=== PATIENT | male | born 1970 | race Caucasian/White ===

== ENCOUNTER 2019-07-20 03:59 | Inpatient (IN) ==
--- NOTE | 2019-07-20 04:21 | ERNOTE ---
Abdominal HPI - General Chief Complaint: Abdominal Pain Time Seen by Provider: 07/20/19 04:09 Source: patient Exam Limitations: no limitations - Immun/Allergies/Home Medications Immunizatons: IMMUNIZATION HX Immunizations Up to Date Yes Allergies/Adverse Reactions: Allergies No Known Allergies Allergy (Verified 07/20/19 04:05) Home Medications: HOME MEDICATIONS Escitalopram Oxalate [Lexapro] 10 mg PO DAILY 02/10/18 [Last Taken Unknown] Carvedilol [Coreg] 6.25 mg PO BID 07/20/19 [Last Taken Unknown] amLODIPine BESYLATE [Norvasc] 5 mg PO DAILY 07/20/19 [Last Taken Unknown] - History of Present Illness Narrative: Patient has reflux symptoms for the past couple of days. A couple of nights he has woken up with acid brash. A couple of months ago he had some similar symptoms aspirated and had cardiopulmonary arrest and was resuscitated in this ED. He was sent to [facility] in [place] for aspiration pneumonia. He did have a cardiac stress test at that same time and states it came out very good. This morning he had similar acid brash symptoms and has a lot of upper abdominal pressure which is concerned of the same thing happening as he had previously done. Timing: getting worse Quality: moderate, fullness Activities at Onset: sleep Modifying Factors - (Improves): Present: sitting up Modifying Factors - (Worsens): Present: lying down Associated Symptoms: Present: nausea Review of Systems - Review of Systems Constitutional: Absent: recent illness ENT: Absent: nose congestion, nasal drainage Respiratory: Present: cough. Absent: shortness of breath Cardiology: Absent: chest pain Gastrointestinal/Abdominal: Present: nausea, abdominal pain Genitourinary: Absent: frequency, pain, dysuria Musculoskeletal: Absent: back pain Neurological: Absent: dizziness/light-headedness Endocrine: Present: excessive sweating Psych: Present: anxiety, depressed Medical History (Updated 07/20/19 @ 08:05 by Stephen Miguel DO) History of successful cardiopulmonary resuscitation Hypertension Hypovitaminosis D Onset Date: Unknown Anxiety Onset Date: Unknown Depression Onset Date: Unknown Hemorrhoids Onset Date: Unknown Surgical History: Surgical History (Updated 06/08/18 @ 14:44 by Brandy Santos RN) History of hemorrhoidectomy Onset Date: ~02/24/18 Gianna-x3 History of inguinal hernia repair Onset Date: ~1988 right History of right knee surgery Onset Date: Unknown meniscus tear when in high school History of tonsillectomy and adenoidectomy Onset Date: Unknown Family History: Family History (Updated 06/08/18 @ 14:49 by Brandy Santos RN) Father Ulcer Mother , age 45-DM type 1, kidney disease Diabetes Kidney disease amputation leg Brother Alive and well 2 half brothers-1 healthy, 1 w/stomach issues Sister Alive and well 1 half sister Social History: (Last Reviewed 07/20/19 @ 04:20 by Stephen Miguel DO) Social History: Marital status: Single household members: significant other current occupational status: employed 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 Service: No Tobacco: Smokeless tobacco user: chewing tobacco Alcohol: alcohol intake: current alcohol intake frequency: holiday/special occasion Substance Use: substance use type: does not use Dietary Habits: caffeine: Yes Personal Safety: victim of physical abuse: No victim of emotional abuse: No Physical Exam - Physical Exam General Appearance: Present: wd/wn, alert, no apparent distress, anxious Head Exam: Present: normal inspection, no evidence of injury Neck: Present: normal inspection, nontender, supple Respiratory: Present: no respiratory distress, normal breath sounds, no accessory muscle use, chest nontender, lungs clear Cardiovascular/Chest: Present: regular rate, rhythm, no murmur Gastrointestinal/Abdominal: Present: normal bowel sounds, tenderness - upper abdomen L>R . Absent: distended, guarding, rebound Back Exam: Present: normal inspection, normal range of motion, no CVA tenderness Extremity Exam: Present: normal inspection, normal range of motion, no edema Neurological Exam: Present: alert, oriented, normal mood/affect, no motor/sensory deficits Skin Exam: Present: normal color, warm/dry Progress - Results and Orders Patient's Lab Results:: I have reviewed the patient's lab results. Results and Orders: Laboratory Tests 07/20/19 07/20/19 04:15 04:15 WBC 12.6 H Hgb 17.5 Hct 49.7 Plt Count 253 Neutrophils % 78.2 H Sodium 137 Potassium 3.9 Chloride 101 Anion Gap 18.6 H BUN 19 Creatinine 1.11 Random Glucose 149 H Calcium 9.3 Total Bilirubin 0.8 AST 16 ALT 24 Alkaline Phosphatase 111 Amylase 36 Lipase 101 - Vital Signs Patient's Vital Signs:: I have reviewed the patient's vital signs. Vital Signs: Vital Signs 07/20/19 04:02 Temperature 36.8 C Pulse Rate 90 Respiratory Rate 16 Blood Pressure 158/118 H - EKG EKG #1 EKG: NSR, RBBB, no ST T wave changes, unchanged from - 05/18/2019 EKG read: Interp. by me - X-Ray X-Ray #1 X-Ray: abdomen Interpretation: Interp. by me X-ray Comments: Multiple gas filled loops of bowel minimal air-fluid levels, no obvious obstruction. X-Ray #2 X-Ray: chest Interpretation: Interp. by me X-ray Comments: No cardiopulmonary abnormalities. - CT/Ultrasound CT/Ultrasound Narrative: CT abdomen pelvis with IV and oral contrast: IMPRESSION: SMALL BOWEL OBSTRUCTION WITH A TRANSITION POINT IN THE DISTAL ILEUM. Electronically signed by Jose Raul Jimenez D.O.. - Progress/Reassessment Chief Complaint: Abdominal Pain Progress Note-Subjective: 07/20/19 07:[address] Ramírez and he will consult if medicine will admit. I spoke with Dr. Wong and he agrees with admit. Departure Clinical Impression: Small bowel obstruction - Departure Disposition: Still a patient Condition: Fair
[2019-07-20 04:23] LABS: Hematocrit 49.7 % (42.0-52.0); Hemoglobin 17.5 gm/dL (13.5-18.0); Mean Cell Volume 86.9 fl (78-100); Mean Corpuscular Hemoglobin 30.6 pg (27-31); Mean Corpuscular Hgb Conc 35.2 g/dl (32-36); Mean Platelet Volume 10.5 fl (8-11.3); Neutrophil # 9.9 K/mm3 (1.3-6.0); Neutrophil % 78.2 % (42-75.0); Platelet Count 253 K/mm3 (150-450); Red Blood Count 5.72 M/mm3 (4.7-6.0); Red Cell Distribution Width 12.7 % (11.5-14.0); White Blood Count 12.6 K/mm3 (4.0-10.5)
[2019-07-20 04:32] LABS: Anion Gap 18.6 mmol/L (6.8-13.8); BUN/Creatinine Ratio 17.1 (9.0-21.6); Bilirubin, Total 0.8 mg/dL (0.0-1.1); Calcium * 9.3 mg/dL (7.9-10.9); Carbon Dioxide 21.3 mmol/L (24-32.6); Potassium 3.9 mmol/L (3.4-4.6); Total Protein 8.5 gm/dL (6.2-8.2)
[2019-07-20] MEDS ORDERED: LIDOCAINE HCL 20 ML UDC PO ONE (04:39)
[2019-07-20] MEDS ORDERED: SUCRALFATE 1 G/10 ML UDC PO ONE (04:39)
[2019-07-20] MEDS ORDERED: MAG HYDROX/ALUMINUM HYD/SIMETH 30 ML UDC PO ONE (04:39)
[2019-07-20] MEDS ORDERED: DIATRIZOATE MEGLUMINE, SODIUM 30 ML BTL PO ONE (05:13)
[2019-07-20] MEDS ORDERED: hydrALAZINE HCL 20 MG/ML VIAL IV SCH (09:30)
[2019-07-20] MEDS ORDERED: hydrALAZINE HCL 20 MG/ML VIAL IV ONE (10:00)
--- NOTE | 2019-07-20 10:34 | CONS ---
[facility] - General Date of Service: 07/20/19 Source: patient, RN/MD, RN notes reviewed, old records Exam Limitations: no limitations - History of Present Illness Initial Comments: For about 48 hours he is been having symptoms of epigastric discomfort, diarrhea, and acid reflux. He was worried that this was similar to his vomiting/aspiration/arrest in May and came into be evaluated. He usually moves his bowels every other day or so. He has had a hemorrhoid operation in the past. For the last 48 hours he has been having watery diarrhea. There is no blood or mucus. No abby abdominal pain just fullness in the upper abdomen. He has had nighttime waterbrash. No fever chills. His only previous surgery was inguinal hernia repair many years ago. Timing/Duration: other - About 48 hours Modifying Factors - (Worsens): Reports: eating Modifying Factors - (Improves): Reports: immobilization Allergies/Adverse Reactions: Allergies No Known Allergies Allergy (Verified 07/20/19 04:05) Home Medications: Home Medications Medication Instructions Recorded Last Taken Escitalopram Oxalate [Lexapro] 10 mg PO DAILY 02/10/18 Unknown Carvedilol [Coreg] 6.25 mg PO BID 07/20/19 Unknown amLODIPine BESYLATE [Norvasc] 5 mg PO DAILY 07/20/19 Unknown Procedures Excision of Hemorrhoidal Plexus, Percutaneous Approach (02/24/18) Review of Systems - Review of Systems Generalized/Overall Review: Present: Malaise. Absent: Chills, Fever EENTM: Present: No Symptoms Reported Respiratory: Present: No Symptoms Reported Cardiac: Present: No Symptoms Reported Abdominal: Present: Other - Abdominal fullness in the epigastrium. Watery diarrhea. Acid reflux Genitourinary: Present: No Symptoms Reported Musculoskeletal: Present: No Symptoms Reported - /waterbrash Neurological: Present: No Symptoms Reported Skin: Present: No Symptoms Reported Endocrine: Present: No Symptoms Reported Physical Examination - Exam Vital Signs: Vital Signs - Last Taken Temp 36.7 C 07/20/19 10:25 Pulse 90 07/20/19 10:25 Resp 20 07/20/19 10:25 BP 182/118 H 07/20/19 10:25 Pulse Ox 97 07/20/19 10:25 O2 Oxygen Delivery Method Room Air Constitutional: Present: Alert, Oriented x3, Cooperative, Well nourished, No distress ENT Exam: Present: normal ENT inspection, other - Nasogastric tube Eye Exam: bilateral eye: normal inspection Neck: Present: full range of motion, normal inspection Respiratory: Present: no respiratory distress Cardiovascular/Chest: Present: regular rate, rhythm Abdomen: Present: Normal bowel sounds, soft, nontender /Rectal: Present: Exam deferred Extremity: Present: normal range of motion, normal inspection Skin Exam: Present: normal color, warm/dry Neurologic: Present: consulting senior practice director II-XII nml as tested, no motor/sensory deficits Appearance: Present: appropriate appearance, appropriate insight Eye contact: Present: cooperative, good eye contact, normal speech Thoughts: Present: normal thought pattern - Results and Findings: Lab/Microbiology results last 24 hrs: Abnormal/Pending Laboratory Last 24 HRS 07/20/19 07/20/19 04:15 04:15 WBC 12.6 H Neutrophils % 78.2 H Lymphocytes % 10.4 L Eosinophils % 3.9 H Neutrophils # 9.9 H Lymphocytes # 1.31 L Carbon Dioxide 21.3 L Anion Gap 18.6 H Random Glucose 149 H Total Protein 8.5 H - Assessments/Findings (1) Small bowel obstruction Diagnosis(s): He has been having diarrhea and there is gas in the colon so the possible obstruction is not complete. Would recommend continued nasogastric suction with IV fluids. He may have ice chips. Would check for H. pylori antigen and stool for pathogens. We will recheck abdominal x-ray later today. Problem: Acute
[2019-07-20] MEDS ORDERED: PHENOL 180 SPRAY BTL MM PRN (10:37)
[2019-07-20] MEDS: PANTOPRAZOLE SODIUM 40 MG in NORMAL SALINE 100 ML IV SCH (11:37)
[2019-07-20] MEDS: POTASSIUM CHLORIDE 20 MEQ in DEXTROSE 5%-0.5 NORMAL SALINE 990 ML IV SCH ×2 (11:37→20:19)
--- NOTE | 2019-07-20 16:07 | PN ---
Dictated Progress Note - Date and Time Seen: Date: 07/20/19 Time: 16:06 - Progress Note Narrative: Vital Signs - Last Taken Temp 36.5 C 07/20/19 15:00 Pulse 74 07/20/19 15:00 Resp 20 07/20/19 15:00 BP 152/105 H 07/20/19 15:00 Pulse Ox 97 07/20/19 15:00 Abnormal/Pending Laboratory Last 24 HRS 07/20/19 07/20/19 04:15 04:15 WBC 12.6 H Neutrophils % 78.2 H Lymphocytes % 10.4 L Eosinophils % 3.9 H Neutrophils # 9.9 H Lymphocytes # 1.31 L Carbon Dioxide 21.3 L Anion Gap 18.6 H Random Glucose 149 H Total Protein 8.5 H No appreciable NG output since insertion. He states he can feel "lots of activity and there". He has passed gas and "I feel like I could have a bowel movement". Will recheck abdominal x-ray.
--- NOTE | 2019-07-20 16:51 | HP ---
Chief Complaint - Chief Complaint Date of Service: 07/20/19 Time of Service: 16:51 Chief Complaint: abdominal pain History of Present Illness: 48-year-old male, history of hypertension and depression presented to the ER after 3 days of worsening abdominal pain and diarrhea. Patient denies fevers or chills, denies blood in his stool, denies change in diet. Patient states abdominal pain is mostly across the top of the abdomen and was initially guarding on exam. CT scan in the ER showed small bowel obstruction with the transition point distal ileum. Patient had an elevated white count 12.6 with a left shift of 78.2. Rest of the labs were benign. Dr. Mena general surgery was consulted from the ER he felt like conservative measures would be appropriate for him at this time. NG tube placed and sit to low intermittent barber ction. Patient was admitted to the floor. Patient denies surgical history of the abdomen. His blood pressure was elevated but the rest vital signs are stable. Medical History (Updated 07/20/19 @ 10:34 by Garth Ramírez MD) History of successful cardiopulmonary resuscitation Hypertension Hypovitaminosis D Onset Date: Unknown Anxiety Onset Date: Unknown Depression Onset Date: Unknown Hemorrhoids Onset Date: Unknown Surgical History: Surgical History (Updated 07/20/19 @ 10:34 by Garth Ramírez MD) History of hemorrhoidectomy Onset Date: ~02/24/18 Tommeraasen-x3 History of inguinal hernia repair Onset Date: ~1988 right History of right knee surgery Onset Date: Unknown meniscus tear when in high school History of tonsillectomy and adenoidectomy Onset Date: Unknown Family History: Family History (Updated 06/08/18 @ 14:49 by Brandy Santos RN) Father Ulcer Mother , age 45-DM type 1, kidney disease Diabetes Kidney disease amputation leg Brother Alive and well 2 half brothers-1 healthy, 1 w/stomach issues Sister Alive and well 1 half sister Social History: (Last Reviewed 07/20/19 @ 10:24 by Parvez Kennedy RN) Social History: Marital status: Single household members: significant other current occupational status: employed 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 Absent: Vomiting Genitourinary: Present: No Symptoms Reported - History Musculoskeletal: Present: No Symptoms Reported Neurological: Present: No Symptoms Reported Skin: Present: No Symptoms Reported Endocrine: Present: No Symptoms Reported Immunizations: IMMUNIZATION HX Immunizations Up to Date Yes Allergies/Adverse Reactions: Allergies Allergy/AdvReac Type Severity Reaction Status Date / Time No Known Allergies Allergy Verified 07/20/19 04:05 Home Medications: HOME MEDICATIONS Escitalopram Oxalate [Lexapro] 10 mg PO DAILY 02/10/18 [Last Taken Unknown] Carvedilol [Coreg] 6.25 mg PO BID 07/20/19 [Last Taken Unknown] amLODIPine BESYLATE [Norvasc] 5 mg PO DAILY 07/20/19 [Last Taken Unknown] Exam - Exam Vital Signs: Vital Signs - Last Taken Temp 36.5 C 07/20/19 15:00 Pulse 74 07/20/19 15:00 Resp 20 07/20/19 15:00 BP 152/105 H 07/20/19 15:00 Pulse Ox 97 07/20/19 15:00 Constitutional: Present: Alert, Oriented x3, Cooperative ENT Exam: Present: hearing grossly normal. Absent: nasal congestion Eye Exam: bilateral eye: normal inspection - Is Neck: Present: non-tender, supple - Is discharge is Back Exam: Present: no CVA tenderness, no vertebral tenderness Respiratory: Present: lungs clear, normal breath sounds, no respiratory distress Cardiovascular/Chest: Present: regular rate, rhythm, no edema. Absent: systolic murmur Abdomen: Present: soft, tender - LUQ, RUQ, hypoactive - Return. Absent: rigidity, rebound tenderness /Rectal: Present: Exam deferred Skin Exam: Present: normal color, warm/dry Appearance: Present: appropriate appearance, appropriate insight Eye contact: Present: cooperative, good eye contact Thoughts: Present: normal thought pattern, normal mood /affect Diagnostic Studies: Abnormal Lab Results 07/20/19 07/20/19 Range/Units 04:15 04:15 WBC 12.6 H (4.0-10.5) K/mm3 Neutrophils % 78.2 H (42-75.0) % Lymphocytes % 10.4 L (20-51) % Eosinophils % 3.9 H (0.0-3.0) % Neutrophils # 9.9 H (1.3-6.0) K/mm3 Lymphocytes # 1.31 L (1.5-3.5) k/mm3 Carbon Dioxide 21.3 L (24-32.6) mmol/L Anion Gap 18.6 H (6.8-13.8) mmol/L Random Glucose 149 H (70-110) mg/dL Total Protein 8.5 H (6.2-8.2) gm/dL Laboratory Results WBC 12.6 K/mm3 (4.0-10.5) H 07/20/19 04:15 RBC 5.72 M/mm3 (4.7-6.0) 07/20/19 04:15 Hgb 17.5 gm/dL (13.5-18.0) 07/20/19 04:15 Hct 49.7 % (42.0-52.0) 07/20/19 04:15 MCV 86.9 fl (78-100) 07/20/19 04:15 MCH 30.6 pg (27-31) 07/20/19 04:15 MCHC 35.2 g/dl (32-36) 07/20/19 04:15 RDW 12.7 % (11.5-14.0) 07/20/19 04:15 Plt Count 253 K/mm3 (150-450) 07/20/19 04:15 MPV 10.5 fl (8-11.3) 07/20/19 04:15 Immature Gran % (Auto) 0.20 % (0.001-0.429) 07/20/19 04:15 Immature Gran # (Auto) 0.03 K/mm3 (0.000-0.0310) 07/20/19 04:15 78.2 % (42-75.0) H 07/20/19 04:15 10.4 % (20-51) L 07/20/19 04:15 7.1 % (0.0-9) 07/20/19 04:15 3.9 % (0.0-3.0) H 07/20/19 04:15 0.2 % (0.0-1.0) 07/20/19 04:15 Nucleated RBC % 0.0 k/mm3 (0-1) 07/20/19 04:15 9.9 K/mm3 (1.3-6.0) H 07/20/19 04:15 1.31 k/mm3 (1.5-3.5) L 07/20/19 04:15 0.9 k/mm3 (0.0-1.0) 07/20/19 04:15 0.5 k/mm3 (0.0-0.7) 07/20/19 04:15 Absolute Basophils 0.0 k/mm3 (0.0-0.1) 07/20/19 04:15 Sodium 137 mmol/L (132-142) 07/20/19 04:15 138 mmol/L (130-142) 07/20/19 04:15 Potassium 3.9 mmol/L (3.4-4.6) 07/20/19 04:15 Chloride 101 mmol/L (97-106) 07/20/19 04:15 Carbon Dioxide 21.3 mmol/L (24-32.6) L 07/20/19 04:15 18.6 mmol/L (6.8-13.8) H 07/20/19 04:15 BUN 19 mg/dL (6-23) 07/20/19 04:15 1.11 mg/dL (0.4-1.4) 07/20/19 04:15 Est GFR (Non-Af Amer) 75 mL/min (60-130) D 07/20/19 04:15 17.1 (9.0-21.6) 07/20/19 04:15 149 mg/dL (70-110) H 07/20/19 04:15 Calcium 9.3 mg/dL (7.9-10.9) 07/20/19 04:15 Calcium Adj for Albumin 9.0 mg/dL (8.4-10.2) 07/20/19 04:15 0.8 mg/dL (0.0-1.1) 07/20/19 04:15 AST 16 U/L (0-48) 07/20/19 04:15 ALT 24 U/L (19-67) 07/20/19 04:15 111 U/L (50-170) 07/20/19 04:15 8.5 gm/dL (6.2-8.2) H 07/20/19 04:15 4.0 gm/dl (3.4-5.0) 07/20/19 04:15 Amylase 36 U/L (25-115) 07/20/19 04:15 101 U/L (73-393) 07/20/19 04:15 Assessment/Plan - Narrative Narrative: 48-year-old male admitted for partial small bowel obstruction distal ileumNG tube placed patient currently n.p.o. Will allow ice chips and Chloraseptic spray to help with discomfort from the tube placement. Meds currently being held due to patient being n.p.o. Patient will need IV hypertensive medication as needed to keep blood pressures under 160 systolic. SCDs to be worn while in bed for DVT prophylaxis. Repeat CBC due to leukocytosis Dr. Soto consulted from general surgery. Will follow his recommendations reg ards to management. Nurse to call with any questions or concerns in regards to medical management. - Assessment/Plan (1) HTN (hypertension) Problem: Acute (2) Depression Problem: Acute (3) Small bowel obstruction Problem: Acute (4) Leukocytosis Problem: Acute
[2019-07-20] MEDS ORDERED: KETOROLAC TROMETHAMINE 30 MG/ML VIAL IV ONE (21:17)
[2019-07-21] MEDS: POTASSIUM CHLORIDE 20 MEQ in DEXTROSE 5%-0.5 NORMAL SALINE 990 ML IV SCH ×3 (04:15→21:44)
[2019-07-21] MEDS ORDERED: hydrALAZINE HCL 20 MG/ML VIAL IV ONE (07:45)
[2019-07-21] MEDS ORDERED: hydrALAZINE HCL 20 MG/ML VIAL IV PRN (08:50)
[2019-07-21 09:09] LABS: Hematocrit 49.5 % (42.0-52.0); Hemoglobin 17.2 gm/dL (13.5-18.0); Mean Cell Volume 88.9 fl (78-100); Mean Corpuscular Hemoglobin 30.9 pg (27-31); Mean Corpuscular Hgb Conc 34.7 g/dl (32-36); Mean Platelet Volume 10.2 fl (8-11.3); Neutrophil # 10.3 K/mm3 (1.3-6.0); Neutrophil % 82.6 % (42-75.0); Platelet Count 201 K/mm3 (150-450); Red Blood Count 5.57 M/mm3 (4.7-6.0); Red Cell Distribution Width 12.9 % (11.5-14.0); White Blood Count 12.5 K/mm3 (4.0-10.5)
[2019-07-21] MEDS ORDERED: KETOROLAC TROMETHAMINE 30 MG/ML VIAL IV ONE (09:56)
[2019-07-21] MEDS: PANTOPRAZOLE SODIUM 40 MG in NORMAL SALINE 100 ML IV SCH (10:05)
[2019-07-21] MEDS ORDERED: BISACODYL 5 MG TABLET.DR PO ONE (10:57)
--- NOTE | 2019-07-21 18:10 | PN ---
Dictated Progress Note - Progress Note Narrative: Vital Signs - Last Taken Temp 36.7 C 07/21/19 16:10 Pulse 78 07/21/19 16:10 Resp 18 07/21/19 16:10 BP 142/96 H 07/21/19 16:10 Pulse Ox 96 07/21/19 16:10 Abnormal/Pending Laboratory Last 24 HRS 07/21/19 09:00 WBC 12.5 H Immature Gran # (Auto) 0.04 H Neutrophils % 82.6 H Lymphocytes % 7.0 L Neutrophils # 10.3 H Lymphocytes # 0.87 L Culture 07/20/19 14:38 - Final Nares MRSA Negative 07/20/19 16:52 Stool Culture - Preliminary Stool No Pathogens Isolated He has tolerated clamping of the NG tube since 11 AM. He has had to clear liquid meals with no nausea or vomiting. He has passed some gas and "feels like he might have to move his bowels again". He used to not move his bowels for up to 4 days at a time. He has been doing better more recently going every other day or so. The x-ray today shows an improved bowel gas pattern. Will DC the NG tube and continue liquids overnight with a repeat x-ray in the morning. His blood pressure does remain elevated, however he may now have p.o. medication for this if needed.
--- NOTE | 2019-07-21 22:58 | PN ---
Subjective - Date and Time Seen Date: 07/21/19 Time: 09:51 Subjective Narrative: Patient did well overnight with significant improvement in his abdominal exam. He currently denies abdominal pain, nausea/vomiting, states he is passing gas. Repeat flat and upright abdominal x-ray showed improvement in his partial small bowel obstruction. Patient interested in having his NG tube clamped in trying to progress his diet today. Patient states he has had 2 bowel movements were both have been wet. Objective - Review of Systems Generalized/Overall Review: Denies: Weakness, Chills, Fever EENTM: Reports: No Symptoms Reported Respiratory: Denies: Cough, Shortness of Breath Cardiac: Denies: Chest Pain, Edema, Palpitations Abdominal: Reports: Abdominal Pain - minimal, Constipation, Diarrhea. Denies: Nausea, Vomiting Genitourinary Symptoms: Reports: No Symptoms Reported Musculoskeletal Complaints: Reports: No Symptoms Reported Neurological: Reports: No Symptoms Reported Skin: Reports: No Symptoms Reported Endocrine: Reports: No Symptoms Reported - Vitals Vitals: Last Vital Signs Temp 36.7 C 07/21/19 19:05 Pulse 80 07/21/19 19:05 Resp 18 07/21/19 19:05 BP 153/90 H 07/21/19 19:05 Pulse Ox 98 07/21/19 19:05 - Abnormal Lab Findings Abnormal Lab Findings: Abnormal Lab Results 07/21/19 Range/Units 09:00 WBC 12.5 H (4.0-10.5) K/mm3 Immature Gran # (Auto) 0.04 H (0.000-0.0310) K/mm3 Neutrophils % 82.6 H (42-75.0) % Lymphocytes % 7.0 L (20-51) % Neutrophils # 10.3 H (1.3-6.0) K/mm3 Lymphocytes # 0.87 L (1.5-3.5) k/mm3 - Exam Constitutional: Present: Alert, Oriented x3, Cooperative, Well developed, No distress ENT Exam: Present: hearing grossly normal, pharyngeal erythema - irritation from NG tube. Absent: nasal congestion, nasal drainage Neck: Present: non-tender, supple Respiratory: Present: lungs clear, normal breath sounds Cardiovascular/Chest: Present: regular rate, rhythm, no murmur Abdomen: Present: soft, nontender, hypoactive - improving LLQ. Absent: distended Skin Exam: Present: normal color, warm/dry Neurologic: Present: alert, normal mood/affect, oriented x 3 Appearance: Present: appropriate appearance, appropriate insight Eye contact: Present: cooperative, good eye contact Thoughts: Present: normal thought pattern, normal mood /affect Assessment/Plan Plan Narrative: Significant improvement in his abdominal exam compared to the day prior. Plan will be to clamp NG tube and see how tolerates clears this afternoon with the hopes of being able to remove the NG tube this evening. Recommended patient ambulate often as this will help with the small bowel obstruction which he states understanding and agreement with. Patient not currently in any pain and overall feels much better. Blood pressure has been elevated, after clamping NG tube a once patient is tolerating p.o. we will restart his Norvasc and his Coreg. In the meantime will order IV hydralazine 10 mg every 2 hours as needed to be given for systolic greater than 160 or diastolic greater than 100. Patient currently asymptomatic from these mildly elevated blood pressures. We will restart his Lexapro for his depression once he is tolerating p.o. again. Patient is in agreement the treatment plan, nurse will call with any questions or concerns. - Problems/Diagnosis (1) Small bowel obstruction Problem: Acute Narrative: Improving (2) HTN (hypertension) Problem: Chronic (3) Depression Problem: Chronic (4) Leukocytosis Problem: Acute
[2019-07-22] MEDS: POTASSIUM CHLORIDE 20 MEQ in DEXTROSE 5%-0.5 NORMAL SALINE 990 ML IV SCH (05:50)
[2019-07-22] MEDS ORDERED: amLODIPine BESYLATE 5 MG TABLET PO SCH (09:00)
[2019-07-22] MEDS ORDERED: ESCITALOPRAM OXALATE 10 MG TAB PO SCH (09:00)
[2019-07-22] MEDS ORDERED: CARVEDILOL 6.25 MG TABLET PO SCH (09:00)
--- NOTE | 2019-07-22 11:21 | DS ---
(1) Small bowel obstruction Problem: Acute (2) HTN (hypertension) Problem: Chronic (3) Depression Problem: Chronic (4) Leukocytosis Problem: Acute Date of Discharge:: 07/22/19 Description of Stay: 40-year-old male presented to the hospital with 3 days worsening abdominal pain. While here CT scan showed partial small bowel obstruction. Patient was made n.p.o. and NG tube was set to low intermittent suction. After 24 hours he had his clamped and was started on clear diet which he tolerated well. He was able to tolerate clears and then his diet was advanced without any complication. He had multiple bowel movement since being here. On the day of discharge patient was nontender, his abdomen was soft, normal bowel sounds. He will follow up with his PCP in the next 1 to 2 weeks regarding this hospital stay. No changes to his medications, he was sent home in stable condition. While here his vital signs were fairly stable other than some mildly elevated blood pressures as patient was unable to tolerate p.o. blood pressure medication and so IV hydralazine at 10 mg every 2 hours as needed for systolic to the 160 was administered as needed which worked well for him. Regarding his blood pressure he was asymptomatic and had no issues regarding it. Procedures Performed: none Results and Findings: Pending Mircobiology Results 07/20/19 16:52 Stool Stool Culture - Preliminary No Pathogens Isolated Lab Pending Results 07/20/19 04:15: WBC 12.6 H, RBC 5.72, Hgb 17.5, Hct 49.7, MCV 86.9, MCH 30.6, MCHC 35.2, RDW 12.7, Plt Count 253, MPV 10.5, Immature Gran % (Auto) 0.20, Immature Gran # (Auto) 0.03, Neutrophils % 78.2 H, Lymphocytes % 10.4 L, Monocytes % 7.1, Eosinophils % 3.9 H, Basophils % 0.2, Nucleated RBC % 0.0, Neutrophils # 9.9 H, Lymphocytes # 1.31 L, Monocytes # 0.9, Eosinophils # 0.5, Absolute Basophils 0.0 07/20/19 04:15: Sodium 137, Plasma Sodium 138, Potassium 3.9, Chloride 101, Carbon Dioxide 21.3 L, Anion Gap 18.6 H, BUN 19, Creatinine 1.11, Est GFR (Non-A f Amer) 75 D, BUN/Creatinine Ratio 17.1, Random Glucose 149 H, Calcium 9.3, Calcium Adj for Albumin 9.0, Total Bilirubin 0.8, AST 16, ALT 24, Alkaline Phosphatase 111, Total Protein 8.5 H, Albumin 4.0, Amylase 36, Lipase 101 07/21/19 09:00: WBC 12.5 H, RBC 5.57, Hgb 17.2, Hct 49.5, MCV 88.9, MCH 30.9, MCHC 34.7, RDW 12.9, Plt Count 201, MPV 10.2, Immature Gran % (Auto) 0.30, Immature Gran # (Auto) 0.04 H, Neutrophils % 82.6 H, Lymphocytes % 7.0 L, Monocytes % 7.1, Eosinophils % 2.9, Basophils % 0.1, Nucleated RBC % 0.0, Neutrophils # 10.3 H, Lymphocytes # 0.87 L, Monocytes # 0.9, Eosinophils # 0.4, Absolute Basophils 0.0 Discharge Location: Home Disposition: Home self-care Condition: Good Discharge Activity: Activity as tolerated Discharge Diet: Low salt Referrals: Donovan Wong DO [Staff Physician] - Two Weeks Complete Home Medications List: Complete Home Medication List: Escitalopram Oxalate [Lexapro] 10 mg PO DAILY 02/10/18 Carvedilol [Coreg] 6.25 mg PO BID 07/20/19 amLODIPine BESYLATE [Norvasc] 5 mg PO DAILY 07/20/19
[2019-07-22] MEDS: PANTOPRAZOLE SODIUM 40 MG in NORMAL SALINE 100 ML IV SCH (11:57)
[2019-07-22 13:59] VITALS: BP 120/72
== END 2019-07-22 15:08 | disposition home or self-care (01) | DRG 390 ==
LOC: ER 03:59 → MS 08:04
PROVIDERS: ADMIT Family Medicine; ATTEND Family Medicine
CPT/HCPCS: 36415; 71010; 71020; 71045; 71046; 74019; 74020; 74177; 80053; 82150; 83690; 85025; 87045; 87046; 87081; 93005; 99285; Q9963; Q9967